=== PATIENT | male | born 1985 | race Caucasian/White ===

== ENCOUNTER 2020-09-17 09:31 | Outpatient (REF) | payer SELFPAY ==
[2020-09-17 13:33] LABS: ALT 54 U/L (16-63); AST 47 U/L (15-37); Albumin 4.2 g/dL (3.4-5.0); Alkaline Phosphatase 52 U/L (46-116); Anion Gap 9.3 mmol/L (3-11); BUN 17 mg/dL (7-18); CO2 30.7 mmol/L (21.0-32.0); CREATININE 0.8 mg/dL (0.70-1.30); Calcium 8.7 mg/dL (8.5-10.1); Calculated LDL 137 mg/dL (<100); Chloride 102 mmol/L (98-107); Cholesterol 214 mg/dL (<200); Glucose 81 mg/dL (74-106); HDL Cholesterol 68 mg/dL (40-60); Potassium 4.7 mmol/L (3.5-5.1); Sodium 142 mmol/L (136-145); Total Protein 7.4 g/dL (6.4-8.2); Triglyceride 48 mg/dL (<150)
[2020-09-17 13:47] LABS: Bilirubin, Total 0.4 mg/dL (0.2-1.0)
== END 2020-09-17 09:32 | disposition home or self-care (01) ==
LOC: NCHCN 09:31
PROVIDERS: Visit Provider Family Medicine
DX: Z00.00 Encounter for general adult medical examination without abnormal findings (principal); Z13.220 Encounter for screening for lipoid disorders; Z13.228 Encounter for screening for other metabolic disorders
CPT/HCPCS: 80053; 80061

== ENCOUNTER 2022-08-30 14:52 | Emergency (ER) | payer SELFPAY ==
[2022-08-30 15:02] VITALS: BP 130/69; PULSE 62; RESP 16; O2SAT 99
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
--- NOTE | 2022-08-30 15:21 | ED.GENADUL_ITS ---
Discharge Plan Disposition Patient Disposition: Home Discharge Details Chief Complaint: HeadInjury Clinical Impression: Blunt head trauma Primary Care Provider: Darlene,Local ED Provider: Wicho Hunter Home Meds and New Rx's Prescriptions: No Action No Known Home Meds Discharge Instructions Additional Instructions: your cat scan did not show concerning findings follow up with your primary care provider if you have lingering headaches or notice issues with your memory if you feel more ill, have severe worsening pain or persistent vomiting return to the emergency department Medical Decision Making 37 yo male who denies chronic medical problems and states has had tetanus vaccine within 5 years, comes in with cc of head injury. He was on a ladder working on cutting a tree when a branch above him fell approximately 8 feet onto the top of his head. Pt denies falling or other injuries. HE arrives stable speaking clearly in no distress, caox4. HE has a superficial 1cm abrasion to the superior head, no hematomas. PERRL, eomi, no neck tenderness with full rom. No chest pain, abdomen pain or back pain. HE has had a headace since the injury which occurred approximately 30 minutes ago. Suspect mild concussion but will obtain ct to evaluate for possible tbi ct unremarkable, no new pain and he feels well. He is stable for d/c, return precautions given Differential Diagnosis Differential Diagnosis: tbi, abrasion, concussion Imaging Data Radiologic Study: Attestation: I personally reviewed and interpreted this imaging study as follows: Imaging: CT Scan Radiologist's impression: no acute findings HPI General Mode of arrival: ambulatory . Date/Time Provider Initiated Documentation: 08/30/22 15:15 . Limitations to Documentation: no limitations . Information obtained by: patient . History of Present Illness 37 year old M presents to the emergency department with the chief complaint of head pain, described as moderate, Quality is described as aching, Patient reports no radiation. Patient started experiencing this hour(s) (1) and it has been constant. No relieving factors improve symptom(s), No exacerbating factors reported . Patient notes denies chest pain, diaphoresis and fever/chills. Patient did receive the following treatments prior to arrival, none Related Data Home Medications Medication Instructions Recorded Confirmed Unknown [No Known Home Meds] 08/30/22 08/30/22 Allergies Allergy/AdvReac Type Severity Reaction Status Date / Time No Known Drug Allergies Allergy Unverified 08/30/22 15:06 General Stated Complaint: HeadInjury DAVID: 3 Review of Systems All systems reviewed & are unremarkable except as noted in HPI and below Constitutional Constitutional: Denies chills, Denies fever(s) and Denies weakness Eyes Eyes: Denies loss of vision Cardiovascular Cardiovascular: Denies chest pain and Denies dyspnea Respiratory Respiratory: Denies cough and Denies dyspnea Gastrointestinal Gastrointestinal: Denies abdominal pain, Denies nausea and Denies vomiting Musculoskeletal Musculoskeletal: Denies joint swelling Neurologic Neurologic: Denies loss of vision and Denies weakness PFSH All Active Problems (Updated 08/30/22 @ 16:02 by Wicho Hunter MD) Blunt head trauma (Acute) Social History Smoking/Tobacco Use Status: Never Smoking risk assessment performed?: Yes Alcohol Intake: current Alcohol Intake frequency: 3 or more drinks per day Do you feel safe at home: Yes Do you feel safe in your relationship?: Yes Exam Const General: no acute distress Orientation: alert HENWV Head: no palpable skull fracture and normocephalic Ears: external ears normal General nose exam: external nose normal Mouth: moist mucous membranes Eyes General: appearance normal, both eyes and all related structures Neck Neck: normal visual inspection, full ROM and nontender Resp Effort & Inspection: normal respiratory effort and able to speak in complete sentences Cardio Rate: regular rate Skin General skin exam: no rashes or lesions noted Neuro General: patient alert and patient oriented x3 Extrem General: normal to inspection Psych Mental Status: mental status grossly normal Course Vital Signs Vital signs: Vital Signs Pulse 62 08/30/22 15:02 Respiratory Rate 16 08/30/22 15:02 Blood Pressure 130/69 08/30/22 15:02 Pulse Oximetry 99 08/30/22 15:02 Pulse 62 08/30/22 15:02 Respiratory Rate 16 08/30/22 15:02 Respiratory Effort Normal, Non-Labored 08/30/22 15:10 Blood Pressure 130/69 08/30/22 15:02 Blood Pressure Position Sitting 08/30/22 15:02 Pulse Oximetry 99 08/30/22 15:02 Oxygen Delivery Method Room Air 08/30/22 15:02 Oxygen Flow Rate 0 08/30/22 15:02 Pain Level 2 08/30/22 15:02 PAWSS Have you Been Recently Intoxicated or Drunk Within the Last 30 days?: Yes Have you Ever Experienced Previous Episodes of Alcohol Withdrawal?: No Have you ever Experienced Withdrawal Seizures?: No Have you ever Experienced Delirium Tremens(DT)s?: No Have you ever undergone Alcohol Rehabilitation Treatment (i.e, inpt ot outpatient treatment programs)?: No Have you ever Experienced Blackouts?: No Have you ever Combined Alcohol with other Downers within the last 90 days?: No Have you ever Combined Alcohol with any other Substance of Abuse during the last 90 days?: No Positive Blood Alcohol level on Presentation? [PCS.BAL]: No Evidence of Increased Autonomic Activity (i.e. HR>120, tremor, sweating, agitation, nausea)?: No Result: 1
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
== END 2022-08-30 16:07 | disposition home or self-care (01) ==
PROVIDERS: Emergency Provider Emergency Medicine
DX: S01.81XA Laceration without foreign body of other part of head, initial encounter (principal); W20.8XXA Other cause of strike by thrown, projected or falling object, initial encounter
CPT/HCPCS: 99284; 70450; 99282

== ENCOUNTER 2023-04-02 18:51 | Outpatient (REF) | payer OTHER, SELFPAY ==
[2023-04-05 12:42] LABS: Lyme Ab w Rflx to Lyme Confirm Equivocal (Negative)
[2023-04-06 11:22] LABS: Lyme IgG Ab Negative (Negative); Lyme IgM Ab Positive (Negative)
[2023-04-06 14:53] LABS: B. miyamotoi PCR Negative (Negative); Babesia divergens/MO-1 Negative (Negative); Babesia duncani Negative (Negative); Babesia microti Negative (Negative); Ehrlichia chaffeensis Negative (Negative); Ehrlichia ewingii/canis Negative (Negative); Ehrlichia muris eauclairensis Negative (Negative)
[2023-04-06 15:01] LABS: Anaplasma phagocytophilum Positive (Negative)
== END 2023-04-02 18:52 | disposition home or self-care (01) ==
LOC: LBN 18:51
PROVIDERS: Visit Provider Physician Assistant Medical
DX: R50.9 Fever, unspecified (principal); A69.20 Lyme disease, unspecified
CPT/HCPCS: 86617; 87798; 86618

== ENCOUNTER 2025-01-24 14:41 | Outpatient (REF) | payer OTHER, SELFPAY ==
[2025-01-24 14:50] LABS: Glucose Negative (Negative)
== END 2025-01-24 14:42 | disposition home or self-care (01) ==
LOC: NCHCN 14:41
PROVIDERS: PCP Family Medicine; Visit Provider Family Medicine
DX: R35.0 Frequency of micturition (principal)
CPT/HCPCS: 81003